=== PATIENT | female | born 1970 | race African-American/Black ===

== ENCOUNTER 2017-04-27 19:16 | Emergency (ER) | payer MEDICAID ==
[~2017-04-27] VITALS: Ht 162.6 cm; Wt 87.5 kg
[2017-04-27 19:28] VITALS: BP_SYST 141
--- NOTE | 2017-04-27 20:26 | NUR ---
PT AMBULATORY TO BED 3 FOR EVALUATION
--- NOTE | 2017-04-27 20:30 | NUR ---
Patient arrived to ED a/o x 4 with c/o elevated blood pressure and blurred vision. Patient presents with BP of 141/68. Denies MORENO. Patient takes amlodipine daily. Denies N/V. Ambulates with steady gait. Pupils PERRL.
--- NOTE | 2017-04-27 20:46 | NUR ---
Patient ambulatory off unit for CT of head. Accompanied by radiology staff.
--- NOTE | 2017-04-27 21:00 | NUR ---
Patient returned to unit.
--- NOTE | 2017-04-27 21:56 | NUR ---
Patient given written and verbal discharge instructions and verbalizes understanding. ER MD Slaughter discussed with patient the results and treatment provided. Patient in stable condition. ID arm band removed. No Rx given. Patient educated on pain management and to follow up with PMD. Pain Scale 0. Opportunity for questions provided and answered.
[2017-04-27 21:57] VITALS: BP_SYST 143
== END 2017-04-27 21:56 | disposition home or self-care (01) ==
LOC: SED 19:16
DX: G93.89 Other specified disorders of brain (principal); I10 Essential (primary) hypertension
CPT/HCPCS: 70450-TC; 99284